=== PATIENT | female | born 1990 | race American Indian/Alaskan Native ===

== ENCOUNTER 2018-02-28 16:25 | Emergency (ER) | payer BC ==
[2018-02-28 16:52] VITALS: RESP 16; TEMP 99.5; O2SAT 100
[2018-02-28] MEDS ORDERED: Sodium Chloride 0.9% 1,000 ML IV STA (16:56)
[2018-02-28 17:06] LABS: URINE BILIRUBIN NEGATIVE (NEGATIVE); URINE BLOOD NEGATIVE (NEGATIVE); URINE COLOR LIGHT YELLOW (YELLOW); URINE GLUCOSE (UA) NEGATIVE (NEGATIVE); URINE LEUKOCYTE ESTERASE SMALL Leu/uL (NEGATIVE); URINE PROTEIN NEGATIVE mg/dL (<30 mg/dL); URINE UROBILINOGEN 0.2 E.U./dL (<1 E.U./dL)
[2018-02-28 17:07] LABS: URINE APPEARANCE CLEAR (CLEAR)
[2018-02-28 17:17] LABS: URINE RBC 0 - 2 /hpf (0-2); URINE WBC 0 - 2 /hpf (0-6)
[2018-02-28 17:29] LABS: BASO # 0.02 K/mm3 (0.0-2.0); BASO % 0.2 % (0.0-3.0); EOS % 0.3 % (1.5-5.0); GRAN # 6.85 (1.4-6.5); HEMOGLOBIN 12.2 g/dL (12.0-16.0); LYMPH # 1.2 (1.2-3.4); LYMPH % 13.5 % (22.0-35.0); MEAN CELL VOLUME 82.1 fl (80.0-105.0); MEAN CORPUSCULAR HEMOGLOBIN 26.9 pg (25.0-35.0); MEAN CORPUSCULAR HGB CONC 32.8 g/dl (31.0-37.0); MEAN PLATELET VOLUME 9.1 fl (7.0-11.0); MONO # 0.6 (0.1-0.6); RBC 4.53 10^6/uL (3.5-6.1); WHITE BLOOD COUNT 8.7 10^3/uL (4.5-11.0)
[2018-02-28 17:41] LABS: ALB/GLOB RATIO 1.4 (1.1-1.8); ALBUMIN 4.7 g/dL (3.0-4.8); ALT/SGPT 20 U/L (7-56); AST/SGOT 21 U/L (14-36); BLOOD UREA NITROGEN 6 mg/dL (7-21); GFR NON-AFRICAN AMERICAN > 60; LIPASE 58 U/L (23-300)
--- NOTE | 2018-02-28 17:54 | ED PDOC ---
Arrival/HPI - General Historian: Patient - History of Present Illness Narrative History of Present Illness (Text): 02/28/18 17:51 27-year-old female presents today with epigastric pain that started yesterday. Patient states she is had a few episodes of vomiting no diarrhea. Patient describes a sharp stabbing pain in the epigastric region. Patient states she was seen at urgent care and was advised to come to the emergency room for evaluation of the gallbladder. Patient states her LMP was in December and she just found out recently that she was . Patient states she has not seen a advertising traffic manager. There is vaginal bleeding or vaginal discharge. She denies pain to the back. She denies sick contacts. No other complaints. Time/Duration: Other (1 day) Symptom Onset: Gradual Symptom Course: Improving <Katharina Lantigua - Last Filed: 02/28/18 19:28> <Henrry Veliz - Last Filed: 02/28/18 21:30> <Mushtaq Greco - Last Filed: 03/01/18 12:41> - General Chief Complaint: Abdominal Pain Time Seen by Provider: 02/28/18 16:34 Past Medical History - Provider Review Nursing Documentation Reviewed: Yes - Travel History Have you recently traveled outside [place] w/in the past 3 mons?: No - Tetanus Immunization Tetanus Immunization: Unknown - Psychiatric Hx Psychophysiologic Disorder: No Hx Substance Use: No <Katharina Lantigua - Last Filed: 02/28/18 19:28> Family/Social History - Physician Review Nursing Documentation Reviewed: Yes Family/Social History: Unknown Family HX Smoking Status: Former Smoker Hx Alcohol Use: Yes Frequency of alcohol use: Socially Hx Substance Use: No <Katharina Lantigua - Last Filed: 02/28/18 19:28> Allergies/Home Meds <Katharina Lantigua - Last Filed: 02/28/18 19:28> <Henrry Veliz - Last Filed: 02/28/18 21:30> <Mushatq Greco - Last Filed: 03/01/18 12:41> Allergies/Adverse Reactions: Allergies No Known Allergies Allergy (Verified 02/28/18 16:46) Review of Systems - Review of Systems Constitutional: absent: Fatigue, Fevers ENT: absent: Sore Throat, Sinus Congestion Respiratory: absent: SOB, Cough Cardiovascular: absent: Chest Pain, Palpitations Gastrointestinal: Abdominal Pain, Nausea, Vomiting. absent: Constipation, Diarrhea Genitourinary Female: absent: Dysuria, Frequency, Hematuria, Vaginal Bleeding, Vaginal Discharge Musculoskeletal: absent: Arthralgias, Back Pain, Neck Pain Skin: absent: Rash, Pruritis Neurological: absent: Headache, Dizziness Psychiatric: absent: Anxiety, Depression <Katharina Lantigua T - Last Filed: 02/28/18 19:28> Physical Exam Vital Signs Reviewed: Yes Vital Signs Temp Pulse Resp BP Pulse Ox 02/28/18 16:47 99.5 F 77 16 115/63 100 Temperature: Afebrile Blood Pressure: Normal Pulse: Regular Respiratory Rate: Normal Appearance: Positive for: Well-Appearing, Non-Toxic, Comfortable Pain Distress: None Mental Status: Positive for: Alert and Oriented X 3 - Systems Exam Head: Present: Atraumatic Mouth: Present: Moist Mucous Membranes Neck: Present: Normal Range of Motion Respiratory/Chest: Present: Clear to Auscultation, Good Air Exchange. No: Respiratory Distress, Accessory Muscle Use Cardiovascular: Present: Regular Rate and Rhythm, Normal S1, S2. No: Murmurs Abdomen: Present: Tenderness (+ epigastric tenderness). No: Distention, Peritoneal Signs, Rebound, Guarding Back: Present: Normal Inspection. No: CVA Tenderness, Midline Tenderness, Pa raspinal Tenderness Upper Extremity: Present: Normal ROM Neurological: Present: GCS=15 Skin: Present: Warm, Dry, Normal Color. No: Rashes Psychiatric: Present: Alert, Oriented x 3 <Katharina Lantigua T - Last Filed: 02/28/18 19:28> Vital Signs Temp Pulse Resp BP Pulse Ox 02/28/18 20:51 64 16 104/64 100 02/28/18 16:47 99.5 F 77 16 115/63 100 <BosompRudy patrickyl - Last Filed: 02/28/18 21:30> Vital Signs Temp Pulse Resp BP Pulse Ox 02/28/18 21:45 68 16 110/68 100 02/28/18 20:51 64 16 104/64 100 02/28/18 16:47 99.5 F 77 16 115/63 100 <Mushtaq Greco - Last Filed: 03/01/18 12:41> Medical Decision Making ED Course and Treatment: 02/28/18 17:55 Patient is nontoxic well appearing in no distress. vitals are stable. pt given NS and pepcid IV. CBC: wnl CMP: wnl lipase; wnl Beta hC TYPE AND SCREEN: A- (pt with no vaginal bleeding. no lower abdominal pain) Urinalysis: + trace leukocytes Ultrasound, transvaginal: US abdominal; Impression: abdominal pain, UTI, Tylenol every 4 hours as needed for pain Increase fluids macrobid; 1 tablet twice daily x 10 days Followup with the melon packer within the next 2 days Follow up with the GI specialist within the next 2 days. Return immediately if symptoms worsen persist or if new symptoms develop: High fevers, heavy bleeding, severe abdominal pain, vomiting, diarrhea, dizziness or weakness or any other concerning symptoms develop. take vitamins daily. Case signed out to Dr. Roper pending ultrasound results reevaluation and disposition - Lab Interpretations Lab Results: 02/28/18 17:16 02/28/18 17:16 Lab Results 02/28/18 17:16: WBC 8.7, RBC 4.53, Hgb 12.2, Hct 37.2, MCV 82.1, MCH 26.9, MCHC 32.8, RDW 16.0 H, Plt Count 375, MPV 9.1, Gran % 79.0 H, Lymph % (Auto) 13.5 L, [place] % (Auto) 7.0 H, Eos % (Auto) 0.3 L, Baso % (Auto) 0.2, Gran # 6.85 H, Lymph # (Auto) 1.2, [place] # (Auto) 0.6, Eos # (Auto) 0.0, Baso # (Auto) 0.02 02/28/18 17:16: Sodium 139, Potassium 4.3, Chloride 105, Carbon Dioxide 24, Anion Gap 14, BUN 6 L, Creatinine 0.6 L, Est GFR ( Amer) > 60, Est GFR (Non-Af Amer) > 60, Random Glucose 71, Calcium 10.0, Total Bilirubin 0.5, AST 21, ALT 20, Alkaline Phosphatase 49, Total Protein 8.1, Albumin 4.7, Globulin 3.4, Albumin/Globulin Ratio 1.4, Lipase 58 02/28/18 16:59: Urine Color Light yellow, Urine Appearance Clear, Urine pH 7.0, Ur Specific Hunt 1.015, Urine Protein Negative, Urine Glucose (UA) Negative, Urine Ketones Negative, Urine Blood Negative, Urine Nitrate Negative, Urine Bilirubin Negative, Urine Urobilinogen 0.2, Ur Leukocyte Esterase Small H, Urine RBC 0 - 2, Urine WBC 0 - 2, Ur Epithelial Cells 1 - 3 - RAD Interpretation Radiology Orders: 02/28/18 17:03 ABDOMEN COMPLETE [US] Stat 02/28/18 17:04 TRANSVAGINAL [US] Stat - Medication Orders Current Medication Orders: Famotidine (Pepcid) 20 mg IVP STAT STA Stop: 02/28/18 17:51 Sodium Chloride (Sodium Chloride 0.9%) 1,000 mls @ 999 mls/hr IV .Q1H1M STA Stop: 02/28/18 17:56 Last Admin: 02/28/18 17:20 Dose: 999 mls/hr eMAR Start Stop Document 02/28/18 17:20 KV (Rec: 02/28/18 17:20 KV [facility]) Intravenous Solution Start Date 02/28/18 Start Time 17:20 <Katharina Lantigua - Last Filed: 02/28/18 19:28> - Lab Interpretations Lab Results: 02/28/18 17:16 02/28/18 17:16 Lab Results 02/28/18 18:44: Blood Type Confirm A NEGATIVE 02/28/18 18:18: Blood Type A NEGATIVE, Antibody Screen Negative, BBK History Checked No verified bt 02/28/18 17:16: WBC 8.7, RBC 4.53, Hgb 12.2, Hct 37.2, MCV 82.1, MCH 26.9, MCHC 32.8, RDW 16.0 H, Plt Count 375, MPV 9.1, Gran % 79.0 H, Lymph % (Auto) 13.5 L, [place] % (Auto) 7.0 H, Eos % (Auto) 0.3 L, Baso % (Auto) 0.2, Gran # 6.85 H, Lymph # (Auto) 1.2, [place] # (Auto) 0.6, Eos # (Auto) 0.0, Baso # (Auto) 0.02 02/28/18 17:16: Beta HCG, Quant 04036.00 H 02/28/18 17:16: Sodium 139, Potassium 4.3, Chloride 105, Carbon Dioxide 24, Anion Gap 14, BUN 6 L, Creatinine 0.6 L, Est GFR ( Amer) > 60, Est GFR (Non-Af Amer) > 60, Random Glucose 71, Calcium 10.0, Total Bilirubin 0.5, AST 21, ALT 20, Alkaline Phosphatase 49, Total Protein 8.1, Albumin 4.7, Globulin 3.4, Albumin/Globulin Ratio 1.4, Lipase 58 02/28/18 16:59: Urine Color Light yellow, Urine Appearance Clear, Urine pH 7.0, Ur Specific Hunt 1.015, Urine Protein Negative, Urine Glucose (UA) Negative, Urine Ketones Negative, Urine Blood Negative, Urine Nitrate Negative, Urine Bilirubin Negative, Urine Urobilinogen 0.2, Ur Leukocyte Esterase Small H, Urine RBC 0 - 2, Urine WBC 0 - 2, Ur Epithelial Cells 1 - 3 - RAD Interpretation Narrative RAD Interpretations (Text): 02/28/17 20:55 Transvaginal Ultrasound History Abdominal pain. Comparison None available. Findings Uterus Twin live intrauterine gestation. Twin A CRL equivalent to 6 wks/3 days gestation Gestational sac diameter equivalent to 6 wks/4 days gestation Heart rate: 137 bpm. Yolk sac and pole are identified. Twin B CRL equivalent to 6 wks/3 days gestation Gestational sac diameter equivalent to 6 wks/0 days gestation Heart rate: 132 bpm. Yolk sac and pole are identified. Uterus measures 10.9 x 3.9 x 6.7 cm. No mass. Cervix Long and closed measuring 3.8 cm. No cervical abnormality seen. Right Ovary Measures 7.2 x 3.9 x 5.6 cm. No mass. Normal flow. Complex cyst measures 4.8 x 4.3 x 4.7 cm. Left Ovary Measures 3 x 1.5 x 2.2 cm. No mass. Unable to get color Doppler as the ovary is too deep. Free Fluid None. Other Findings None. Impression 1. Twin live intrauterine gestation. 2. Right ovarian complex cyst. Dictator: Nelson Whatley MD Radiology Orders: 02/28/18 17:03 ABDOMEN COMPLETE [US] Stat 02/28/18 17:04 OB TRANSVAGINAL [US] Stat - Medication Orders Current Medication Orders: Discontinued Medications Acetaminophen (Tylenol 325mg Tab) 975 mg PO STAT STA Stop: 02/28/18 17:57 Last Admin: 02/28/18 18:08 Dose: 975 mg MAR Pain/Vitals Document 02/28/18 18:08 KV (Rec: 02/28/18 18:08 KV [facility]) Pain Reassessment Is This A Pain ReAssessment? No Sleep Is patient sleeping during reassessment? No Presence of Pain Presence of Pain Yes Pain Scale Used Protocol: PSCALES Pain Scale Used Numeric Location Upper or Lower Upper Pain Location Body Site Abdomen Description Constant Intensity 6 Scale Used Numeric Famotidine (Pepcid) 20 mg IVP STAT STA Stop: 02/28/18 17:51 Last Admin: 02/28/18 18:08 Dose: 20 mg IVP Administration Document 02/28/18 18:08 KV (Rec: 02/28/18 18:08 KV [facility]) Charges for Administration # of IVP Administrations 1 Sodium Chloride (Sodium Chloride 0.9%) 1,000 mls @ 999 mls/hr IV .Q1H1M STA Stop: 02/28/18 17:56 Last Admin: 02/28/18 17:20 Dose: 999 mls/hr eMAR Start Stop Document 02/28/18 17:20 KV (Rec: 02/28/18 17:20 KV [facility]) Intravenous Solution Start Date 02/28/18 Start Time 17:20 <Henrry Veliz - Last Filed: 02/28/18 21:30> - Lab Interpretations Lab Results: Total Bilirubin 0.5 mg/dL (0.2-1.3) 02/28/18 17:16 AST 21 U/L (14-36) 02/28/18 17:16 ALT 20 U/L (7-56) 02/28/18 17:16 Alkaline Phosphatase 49 U/L (38-126) 02/28/18 17:16 Total Protein 8.1 g/dL (5.8-8.3) 02/28/18 17:16 Albumin 4.7 g/dL (3.0-4.8) 02/28/18 17:16 Globulin 3.4 gm/dL 02/28/18 17:16 Albumin/Globulin Ratio 1.4 (1.1-1.8) 02/28/18 17:16 Lipase 58 U/L (23-300) 02/28/18 17:16 Urine Color Light yellow (YELLOW) 02/28/18 16:59 Urine Appearance Clear (CLEAR) 02/28/18 16:59 Urine pH 7.0 (4.7-8.0) 02/28/18 16:59 Ur Specific Hunt 1.015 (1.005-1.035) 02/28/18 16:59 Urine Protein Negative mg/dL (<30 mg/dL) 02/28/18 16:59 Urine Glucose (UA) Negative mg/dL (NEGATIVE) 02/28/18 16:59 Urine Ketones Negative mg/dL (NEGATIVE) 02/28/18 16:59 Urine Blood Negative (NEGATIVE) 02/28/18 16:59 Urine Nitrate Negative (NEGATIVE) 02/28/18 16:59 Urine Bilirubin Negative (NEGATIVE) 02/28/18 16:59 Urine Urobilinogen 0.2 E.U./dL (<1 E.U./dL) 02/28/18 16:59 Ur Leukocyte Esterase Small [place]/uL (NEGATIVE) H 02/28/18 16:59 Urine RBC 0 - 2 /hpf (0-2) 02/28/18 16:59 Urine WBC 0 - 2 /hpf (0-6) 02/28/18 16:59 Ur Epithelial Cells 1 - 3 /hpf (0-5) 02/28/18 16:59 Beta HCG, Quant 69716.00 mIU/mL (0-6.15) H 02/28/18 17:16 - RAD Interpretation Radiology Orders: 02/28/18 17:03 ABDOMEN COMPLETE [US] Stat 02/28/18 17:04 OB TRANSVAGINAL [US] Stat - Medication Orders Current Medication Orders: Discontinued Medications Acetaminophen (Tylenol 325mg Tab) 975 mg PO STAT STA Stop: 02/28/18 17:57 Last Admin: 02/28/18 18:08 Dose: 975 mg MAR Pain/Vitals Document 02/28/18 18:08 KV (Rec: 02/28/18 18:08 KV [id number]) Pain Reassessment Is This A Pain ReAssessment? No Sleep Is patient sleeping during reassessment? No Presence of Pain Presence of Pain Yes Pain Scale Used Protocol: PSCALES Pain Scale Used Numeric Location Upper or Lower Upper Pain Location Body Site Abdomen Description Constant Intensity 6 Scale Used Numeric Famotidine (Pepcid) 20 mg IVP STAT STA Stop: 02/28/18 17:51 Last Admin: 02/28/18 18:08 Dose: 20 mg IVP Administration Document 02/28/18 18:08 KV (Rec: 02/28/18 18:08 KV [facility]) Charges for Administration # of IVP Administrations 1 Sodium Chloride (Sodium Chloride 0.9%) 1,000 mls @ 999 mls/hr IV .Q1H1M STA Stop: 02/28/18 17:56 Last Admin: 02/28/18 17:20 Dose: 999 mls/hr eMAR Start Stop Document 02/28/18 17:20 KV (Rec: 02/28/18 17:20 KV [facility]) Intravenous Solution Start Date 02/28/18 Start Time 17:20 <Mushtaq Greco - Last Filed: 03/01/18 12:41> - PA / MOVIE CRITIC / Resident Statement / has reviewed & agrees with the documentation as recorded. <Mushtaq Greco - Last Filed: 03/01/18 12:41> Disposition/Present on Arrival - Present on Arrival Any Indicators Present on Arrival: No History of DVT/PE: No History of Uncontrolled Diabetes: No Urinary Catheter: No History of Decub. Ulcer: No History Surgical Site Infection Following: None - Disposition Have Diagnosis and Disposition been Completed?: Yes Disposition Time: 19:29 Patient Plan: Discharge <Katharina Lantigua - Last Filed: 02/28/18 19:28> <Henrry Veliz - Last Filed: 02/28/18 21:30> <Mushtaq Greco - Last Filed: 03/01/18 12:41> - Disposition Diagnosis: Abdominal pain, UTI (urinary tract infection), , Gallstones Disposition: HOME/ ROUTINE Condition: GOOD Discharge Instructions (ExitCare): Urinary Tract Infections in Adults, Medications and , Gallstones (DC), Care Additional Instructions: Tylenol every 4 hours as needed for pain Increase fluids Followup with the melon packer within the next 2 days Follow up with the GI specialist within the next 2 days. Return immediately if symptoms worsen persist or if new symptoms develop: High fevers, heavy bleeding, severe abdominal pain, vomiting, diarrhea, dizziness or weakness or any other concerning symptoms develop. take vitamins daily. Prescriptions: Nitrofurantoin Macrocrystals [Macrobid] 100 mg PO BID #20 cap Pnv No.95/Ferrous Fum/Folic AC [ Tablet] 1 each PO DAILY #30 tablet Referrals: Nelson Vigil DO [Staff Provider] - Follow up with primary Bryson Wilson MD [Medical Doctor] - Follow up with primary Lyric Logan MD [Medical Doctor] - Follow up with primary [facility] [Outside] - [facility] [Outside] - Follow up with primary Forms: [facility] (Kiswahili), WORK NOTE
[2018-02-28 22:16] VITALS: BP 110/68; PULSE 68
--- NOTE | 2018-03-01 10:36 | CARD ---
APPROVED REPORT Date of service: 02/28/2018 EKG Measurement Heart [id number] <Conclusion> Normal sinus rhythm Possible Biatrial enlargement
--- NOTE | 2018-03-01 13:26 | US ---
Date of service: 02/28/2018 PROCEDURE: HISTORY: abd pain COMPARISON: TECHNIQUE: FINDINGS: There is a twin twin gestation with baby a with a crown-rump length of 1.8 cm corresponding to 6 weeks gestational age. Twin B is 6 weeks and 2 days corresponding to 6 weeks and 2 days. heart motion is observed. The accept are present. There is a right ovarian cyst. IMPRESSION: twin live intrauterine gestation. Right ovarian cyst measuring 4.8 centimeters.
--- NOTE | 2018-03-01 13:29 | US ---
Date of service: 02/28/2018 HISTORY: upper abd pain COMPARISON: None. TECHNIQUE: Sonographic evaluation of the abdomen. FINDINGS: LIVER: Measures cm. Normal echogenicity of the liver parenchyma. No mass. No intrahepatic bile duct dilatation. GALLBLADDER: Cholelithiasis. COMMON BILE DUCT: Measures mm. No stones. No dilatation. PANCREAS: Unremarkable as visualized. No mass. No ductal dilatation. RIGHT KIDNEY: Measures cm. Normal echogenicity. No calculus, mass, or hydronephrosis. LEFT KIDNEY: Measures cm. Normal echogenicity. No calculus, mass, or hydronephrosis. SPLEEN: Normal in size and contour. No mass. AORTA: No aneurysmal dilatation. IVC: Unremarkable. OTHER FINDINGS: None. IMPRESSION: Cholelithiasis.
== END 2018-02-28 21:45 | disposition home or self-care (01) ==
LOC: ED 16:25
DX: O23.41 Unspecified infection of urinary tract in pregnancy, first trimester (principal); K80.80 Other cholelithiasis without obstruction; R10.9 Unspecified abdominal pain; Z3A.01 Less than 8 weeks gestation of pregnancy
CPT/HCPCS: 76700; 76817; 80053; 81001; 83690; 84702; 85025; 86850; 86900; 87086; 93005; 96374; 99284; J7030